=== PATIENT | male | born 1985 | race Caucasian/White ===

== ENCOUNTER 2022-08-26 11:36 | Emergency (ER) | payer SELFPAY ==
[~2022-08-26] VITALS: Ht 167.6 cm; Wt 64.4 kg
[2022-08-26] MEDS ORDERED: PENI250T2 PO (11:51)
[2022-08-26] MEDS ORDERED: IBUP800T54 PO (11:51)
[2022-08-26 11:59] VITALS: BP_SYST 132; PULSE 76; RESP 18; TEMP 98.1; O2SAT 95
[2022-08-26 12:22] VITALS: BP_SYST 128; PULSE 81; RESP 20; TEMP 98.1; O2SAT 96
== END 2022-08-26 12:21 | disposition home or self-care (01) ==
LOC: SED 11:36
DX: K04.7 Periapical abscess without sinus (principal); K08.89 Other specified disorders of teeth and supporting structures; Z79.899 Other long term (current) drug therapy
CPT/HCPCS: 99283